=== PATIENT | female | born 1955 | race Caucasian/White ===

== ENCOUNTER 2022-05-27 12:15 | Inpatient (IN) | payer OTHER ==
[~2022-05-27] VITALS: Ht 157.5 cm; Wt 58.1 kg
[2022-05-27] MEDS ORDERED: TIM (15:08)
[2022-05-27] MEDS ORDERED: [UNRECOGNIZED DRUG - CODE] (15:08)
[2022-05-27] MEDS ORDERED: [UNRECOGNIZED DRUG - OTHER] (15:10)
[2022-05-29] MEDS ORDERED: DORZOLAMIDE-TI1 EACH (10:50)
[2022-05-29] MEDS ORDERED: ZIOPTAN 0.00151 EACH (10:50)
[2022-05-29] MEDS ORDERED: DORZOLAMIDE-TIM10 ML (10:50)
== END 2022-05-31 13:20 | disposition home or self-care (01) | DRG 741 ==
LOC: O/R 05-29 06:48 → SURH 05-29 06:48 → SURG 05-29 12:15 → SURH 05-29 15:11 → SURG 05-29 18:45 → SURH 05-31 13:20
PROVIDERS: ADMIT Obstetrics & Gynecology Gynecologic Oncology; ATTEND Obstetrics & Gynecology Gynecologic Oncology
PROC: 0UT20ZZ Resection of Bilateral Ovaries, Open Approach (ICD-10-PCS; 2022-05-29)
PROC: 0UT70ZZ Resection of Bilateral Fallopian Tubes, Open Approach (ICD-10-PCS; 2022-05-29)
PROC: 07BC0ZX Excision of Pelvis Lymphatic, Open Approach, Diagnostic (ICD-10-PCS; 2022-05-29)
PROC: 0UT90ZZ Resection of Uterus, Open Approach (ICD-10-PCS; principal; 2022-05-29 18:45)
DX: C54.9 Malignant neoplasm of corpus uteri, unspecified (principal)

== ENCOUNTER 2024-03-23 22:46 | Inpatient (IN) | payer OTHER ==
[~2024-03-23] VITALS: Ht 154.9 cm; Wt 57.6 kg
[~2024-03-23 22:46] MED LIST: DORZOLAMIDE-TI1 EACH; DORZOLAMIDE-TIM10 ML; TIM; ZIOPTAN 0.00151 EACH; [UNRECOGNIZED DRUG - CODE]; [UNRECOGNIZED DRUG - OTHER]
--- NOTE | 2024-03-23 23:07 | NUR ---
SE RECIBE PTE ALERTA Y ORIENTADA X3. REFIERE DOLOR ABDOMINAL HACE 5 NEVAREZ. SE MIDEN SV Y SE UBICA
[2024-03-23] MEDS ORDERED: FAMOTIDINE/PF 20 MG in 0.9 % SODIUM CHLORIDE 8 ML IV PUSH STA (23:31)
[2024-03-23] MEDS ORDERED: FAMOTIDINE/PF 20 MG/2 ML VIAL ONE (23:34)
[2024-03-23] MEDS ORDERED: KETOROLAC TROMETHAMINE 30 MG VIAL ONE (23:34)
[2024-03-23] MEDS ORDERED: ONDANSETRON HCL 2 MG/ML VIAL ONE (23:34)
[2024-03-23] MEDS ORDERED: KETOROLAC TROMETHAMINE 30 MG VIAL IV ONE (23:45)
[2024-03-23] MEDS ORDERED: ONDANSETRON HCL 2 MG/ML VIAL IV ONE (23:45)
--- NOTE | 2024-03-23 23:50 | NUR ---
PTE ALERTA Y ORIENTADA X3 SE LE ORIENTA SOBRE TX MEDICO LO CUAL REFIERE ENTENDER Y ACEPTAR. SE LE REALIZAN MUESTRAS DE LAB BAJO MEDIDAS ASEPTICAS Y SE LE ADMINISTRA MEDICAMENTOS DIMITRI ORDEN MEDICA
[2024-03-23 23:59] LABS: HEMOGLOBIN 12.5 g/dL (12.0-15.00); MEAN CORPUSCULAR HGB CONC 33.7 g/dl (32.0-36.0); PLATELET COUNT 258 K/uL (150-450); RED BLOOD COUNT 4.15 M/uL (4.00-6.00); RED CELL DISTRIBUTION WIDTH 13.2 % (11.5-14.5)
[2024-03-24 00:21] LABS: URINE APPEARANCE Clear; URINE BILIRRUBIN Negative (NEGATIVE); URINE BLOOD Negative; URINE COLOR Yellow; URINE GLUCOSE Negative (NEGATIVE); URINE LEUKOCYTE Moderate; URINE NITRATE Negative; URINE PROTEIN Negative (NEGATIVE); URINE UROBILINOGEN 0.2 E.U./dl
[2024-03-24 00:25] LABS: URINE BACTERIA 50.3 uL (0.0-1933); URINE RBC 25.1 uL (0.0-20.8); URINE WBC 111.4 uL (0.0-23.2)
[2024-03-24 00:27] LABS: URINE CAST 0.15 uL (0.0-1.40); URINE KETONE 40 (NEGATIVE)
[2024-03-24 01:14] LABS: ALBUMIN 3.9 gm/dL (3.4-5.0); BILIRUBIN TOTAL 0.36 mg/dL (0.3-1.2); CALCIUM 9.6 mg/dL (8.5-10.1); CREATININE SERUM 0.73 mg/dL (0.55-1.02); GFR 78.81; GLOBULINA 3.6 G/DL (2.4-3.5); POTASSIUM 4.41 mEq/L (3.5-5.1); TOTAL PROTEIN 7.5 gm/dL (6.4-8.2)
[2024-03-24] MEDS ORDERED: PIPERACILLIN/TAZOBACTAM SODIUM 3.375 GM in 0.9 % SODIUM CHLORIDE 100 ML IV SCH (01:47)
[2024-03-24] MEDS ORDERED: PIPERACILLIN/TAZOBACTAM SODIUM 3.375 GM VIAL IV ONE ×2 (01:50→05:35)
[2024-03-24] MEDS ORDERED: RINGERS SOLUTION,LACTATED 1,000 ML IV ONE (02:00)
[2024-03-24 07:18] LABS: INR 1.05; PARTIAL THROMBOPLASTIN TIME 29.5 SECONDS (22.0-34.0)
--- NOTE | 2024-03-24 07:20 | NUR ---
SE RECIBE PTE ALERTA ORIENTADA X3 EN [place] CON BARANDAS ELEVADAS POR HORTON SEGURIDAD.VENOPUNCION PATENTE CARLY DE EDEMA Y ERITEMA RECIBIENDO R/L BAJANDO A 125 ML/HR.
[2024-03-24] MEDS ORDERED: ONDANSETRON HCL 2 MG/ML VIAL IV PRN ×2 (07:45→17:30)
[2024-03-24] MEDS ORDERED: MEPERIDINE HCL/PF 25 MG/ML VIAL IV PRN (07:45)
[2024-03-24] MEDS ORDERED: PIPERACILLIN/TAZOBACTAM SODIUM 3.375 GM VIAL IV SCH (12:00)
[2024-03-24] MEDS ORDERED: FAMOTIDINE/PF 20 MG/2 ML VIAL IV SCH (17:22)
[2024-03-24] MEDS ORDERED: KETOROLAC TROMETHAMINE 30 MG VIAL IV PRN (17:30)
[2024-03-24] MEDS ORDERED: SUGAMMADEX SODIUM 200 MG/2 ML VIAL IV NR (18:15)
[2024-03-24] MEDS ORDERED: ISOPROPYL ALCOHOL 30 ML OUNCE TOP NR (18:15)
[2024-03-24] MEDS ORDERED: 0.9 % SODIUM CHLORIDE 1,000 ML IV SCH (21:30)
[2024-03-25 07:09] LABS: HEMATOCRIT 35.2 % (36.0-45.00); HEMOGLOBIN 11.7 g/dL (12.0-15.00); MEAN CELL VOLUME 88.2 fL (80.00-100.00); MEAN CORPUSCULAR HEMOGLOBIN 29.3 pg (27.00-32.0); MEAN CORPUSCULAR HGB CONC 33.2 g/dl (32.0-36.0); PLATELET COUNT 242 K/uL (150-450); RED CELL DISTRIBUTION WIDTH 13.4 % (11.5-14.5)
[2024-03-25 07:13] LABS: CALCIUM 8.5 mg/dL (8.5-10.1); CREATININE SERUM 0.67 mg/dL (0.55-1.02); GFR 87.01; POTASSIUM 4.08 mEq/L (3.5-5.1)
[2024-03-25] MEDS ORDERED: PIPERACILLIN/TAZOBACTAM SODIUM 3.375 GM in 0.9 % SODIUM CHLORIDE 100 ML IV SCH (08:00)
[2024-03-25] MEDS ORDERED: ENOXAPARIN SODIUM 40 MG/0.4 ML SYRINGE SUBCUTANEO SCH (09:00)
[2024-03-26 09:01] LABS: HEMATOCRIT 30.5 % (36.0-45.00); HEMOGLOBIN 10.3 g/dL (12.0-15.00); MEAN CELL VOLUME 87.7 fL (80.00-100.00); MEAN CORPUSCULAR HEMOGLOBIN 29.6 pg (27.00-32.0); MEAN CORPUSCULAR HGB CONC 33.7 g/dl (32.0-36.0); PLATELET COUNT 201 K/uL (150-450); RED BLOOD COUNT 3.48 M/uL (4.00-6.00); RED CELL DISTRIBUTION WIDTH 13.5 % (11.5-14.5)
[2024-03-26 09:25] LABS: CALCIUM 8.4 mg/dL (8.5-10.1); CREATININE SERUM 0.72 mg/dL (0.55-1.02); GFR 80.08; POTASSIUM 3.72 mEq/L (3.5-5.1)
[2024-03-27 07:43] LABS: HEMATOCRIT 30.9 % (36.0-45.00); HEMOGLOBIN 10.3 g/dL (12.0-15.00); MEAN CELL VOLUME 89.9 fL (80.00-100.00); MEAN CORPUSCULAR HGB CONC 33.4 g/dl (32.0-36.0); PLATELET COUNT 217 K/uL (150-450); RED BLOOD COUNT 3.43 M/uL (4.00-6.00); RED CELL DISTRIBUTION WIDTH 13.4 % (11.5-14.5)
[2024-03-27 08:46] LABS: CALCIUM 8.5 mg/dL (8.5-10.1); CREATININE SERUM 0.76 mg/dL (0.55-1.02); GFR 75.23; POTASSIUM 3.99 mEq/L (3.5-5.1)
[2024-03-27] MEDS ORDERED: AMOX1TAB5 PO (10:13)
== END 2024-03-27 11:39 | disposition home or self-care (01) | DRG 399 ==
LOC: ER 22:47 → MEDI 03-24 08:12 → SEC-K 03-24 08:12 → SURH 03-24 08:12 → MEDI 03-24 09:44 → SURH 03-24 19:31
PROVIDERS: General Practice; Surgery; ADMIT Internal Medicine; ATTEND Internal Medicine
PROC: BW21ZZZ Computerized Tomography (CT Scan) of Abdomen and Pelvis (ICD-10-PCS; 2024-03-23)
PROC: 0WQF4ZZ Repair Abdominal Wall, Percutaneous Endoscopic Approach (ICD-10-PCS; 2024-03-24)
PROC: 0DTJ4ZZ Resection of Appendix, Percutaneous Endoscopic Approach (ICD-10-PCS; principal; 2024-03-24 18:00)
DX: K35.891 Other acute appendicitis without perforation, with gangrene (principal); K43.9 Ventral hernia without obstruction or gangrene

== ENCOUNTER 2024-04-03 12:59 | Emergency (ER) | payer OTHER ==
[~2024-04-03] VITALS: Ht 157.5 cm; Wt 55.3 kg
[~2024-04-03 12:59] MED LIST changes: +AMOX1TAB5 PO
[2024-04-03 15:31] LABS: HEMATOCRIT 38.4 % (36.0-45.00); HEMOGLOBIN 12.6 g/dL (12.0-15.00); MEAN CELL VOLUME 89.8 fL (80.00-100.00); MEAN CORPUSCULAR HEMOGLOBIN 29.4 pg (27.00-32.0); MEAN CORPUSCULAR HGB CONC 32.8 g/dl (32.0-36.0); PLATELET COUNT 449 K/uL (150-450); RED BLOOD COUNT 4.28 M/uL (4.00-6.00); RED CELL DISTRIBUTION WIDTH 13.5 % (11.5-14.5)
[2024-04-03 16:02] LABS: URINE APPEARANCE Clear; URINE BILIRRUBIN Negative (NEGATIVE); URINE BLOOD Negative; URINE COLOR Yellow; URINE GLUCOSE Negative (NEGATIVE); URINE KETONE Negative (NEGATIVE); URINE LEUKOCYTE Trace; URINE NITRATE Negative; URINE PROTEIN Negative (NEGATIVE); URINE UROBILINOGEN 0.2 E.U./dl
[2024-04-03 16:06] LABS: URINE BACTERIA 8.8 uL (0.0-1933); URINE EPITHELIAL CELLS 3.3 uL (0.0-38.8); URINE RBC 3.6 uL (0.0-20.8); URINE WBC 3.2 uL (0.0-23.2)
[2024-04-03 16:08] LABS: URINE CAST 0.15 uL (0.0-1.40)
[2024-04-03 16:50] LABS: ALBUMIN 3.9 gm/dL (3.4-5.0); BILIRUBIN TOTAL 0.3 mg/dL (0.3-1.2); CALCIUM 9.8 mg/dL (8.5-10.1); CREATININE SERUM 0.77 mg/dL (0.55-1.02); GFR 74.11; GLOBULINA 4.7 G/DL (2.4-3.5); POTASSIUM 4.56 mEq/L (3.5-5.1); TOTAL PROTEIN 8.6 gm/dL (6.4-8.2)
[2024-04-03 17:09] LABS: ABG PH 7.416 (7.35-7.45); ABG PO2 76.3 mmHg (80-100); ABG pCO2 39.5 mmHg (35-45); BASE EXCESS 0.4 mmol/l; BICARBONATE 24.9 mmol/l (23-25); SaO2 95.3 %; Tco2 26.1 mmol/l
[2024-04-03 18:04] LABS: o2 21 %
[2024-04-03 18:05] LABS: allen test SATISFACTORY; puncture site RADIAL RIGHT
[2024-04-03] MEDS ORDERED: DEXAMETHASONE SODIUM PHOSPHATE 4 MG/ML VIAL IM STA (19:53)
[2024-04-03] MEDS ORDERED: ACETAMINOPHEN 325 MG TABLET PO STA (19:54)
== END 2024-04-03 20:19 | disposition home or self-care (01) ==
LOC: ER 13:00
PROVIDERS: Emergency Medicine
DX: R06.02 Shortness of breath (principal)